=== PATIENT | male | born 2000 | race Caucasian/White ===

== ENCOUNTER 2020-09-29 20:42 | Emergency (ER) | payer OTHER ==
[~2020-09-29] VITALS: Ht 165.1 cm; Wt 59.9 kg
== END 2020-09-29 22:57 | disposition home or self-care (01) ==
LOC: ER 20:42
DX: M62.838 Other muscle spasm (principal)

== ENCOUNTER → 2020-10-24 | Emergency (ER) | payer OTHER ==
[~2020-10-24] VITALS: Ht 165.1 cm; Wt 61.2 kg
[~2020-10-24] MED LIST: ONDANSETRON ODT4 MG SL; PEPCID AC20 MG PO
== END | disposition left against medical advice (07) ==
LOC: ER 20:17
DX: B34.9 Viral infection, unspecified (principal); Z11.52 Encounter for screening for COVID-19

== ENCOUNTER 2020-10-25 12:48 | Emergency (ER) | payer OTHER ==
[~2020-10-25] VITALS: Ht 152.4 cm; Wt 61.2 kg
[2020-10-25] MEDS ORDERED: PEPCID AC20 MG PO (16:21)
[2020-10-25] MEDS ORDERED: ONDANSETRON ODT4 MG SL (16:21)
== END 2020-10-25 20:38 | disposition home or self-care (01) ==
LOC: ER 12:48
DX: K29.70 Gastritis, unspecified, without bleeding (principal); E86.0 Dehydration; B34.9 Viral infection, unspecified; R11.0 Nausea

== ENCOUNTER 2021-10-28 19:37 | Emergency (ER) | payer OTHER ==
[~2021-10-28] VITALS: Ht 165.1 cm; Wt 54.0 kg
[2021-10-28] MEDS ORDERED: NAPROXEN500 MG PO (21:30)
[2021-10-28] MEDS ORDERED: DOXYCYCLINE HY100 M2 PO (21:30)
== END 2021-10-28 21:39 | disposition home or self-care (01) ==
LOC: ER 19:37
DX: S31.21XA Laceration without foreign body of penis, initial encounter (principal); X58.XXXA Exposure to other specified factors, initial encounter; Y92.9 Unspecified place or not applicable

== ENCOUNTER → 2022-11-02 | Emergency (ER) | payer OTHER ==
[~2022-11-02] VITALS: Ht 165.1 cm; Wt 52.2 kg
[~2022-11-02] MED LIST changes: +ACETAMINOPHEN650 M2; +DOXYCYCLINE HY100 M2 PO; +NAPROXEN500 MG PO
== END | disposition home or self-care (01) ==
LOC: ER 19:31
DX: S31.21XA Laceration without foreign body of penis, initial encounter (principal)

== ENCOUNTER 2023-09-12 13:14 | Emergency (ER) | payer OTHER ==
[~2023-09-12] VITALS: Ht 165.1 cm; Wt 54.4 kg
== END 2023-09-12 17:51 | disposition home or self-care (01) ==
LOC: ER 13:14
DX: L02.426 Furuncle of left lower limb (principal)

== ENCOUNTER 2024-09-08 23:11 | Emergency (ER) | payer OTHER ==
[~2024-09-08] VITALS: Ht 165.1 cm; Wt 56.7 kg
== END 2024-09-09 | disposition left against medical advice (07) ==
LOC: ER 23:13
DX: Z53.21 Procedure and treatment not carried out due to patient leaving prior to being seen by health care provider (principal)